=== PATIENT | male | born 1945 | race African-American/Black ===

== ENCOUNTER 2018-11-17 13:30 | Inpatient (IN) ==
[2018-11-17] MEDS ORDERED: SODIUM CHLORIDE 0.9% 1,000 ML IV STA (13:56)
[2018-11-17 14:50] LABS: Basophils % 0.5 % (0.0-0.8); Eosinophils # 0.1 10*3/uL (0.0-0.87); Eosinophils % 0.8 % (0.00-10.9); Hemoglobin 13.5 GM/DL (14.0-18.0); Immature Granulocytes % 0.3 %; Immature Granulocytes Absolute 0.02 #; Lymphocytes # 1.1 10*3/uL (1.4-4.0); Lymphocytes % 16.8 % (21.2-54.2); Mean Corpuscular HGB Conc 32.9 GM/DL (32-36); Mean Corpuscular Volume 87.6 FL (87-102); Mean Platelet Volume 10.7 FL (9.6-12.0); Neutrophils % 70.6 % (38.7-73.9); Platelet Count 130 T/CUMM (130-400); Red Blood Count 4.68 MC/CUMM (3.8-5.5); Red Cell Distribution Width 12.3 % (9.3-17.3); White Blood Count 6.4 T/CUMM (4-12)
[2018-11-17 15:23] LABS: Albumin 3.4 G/DL (3.4-5.0); Bilirubin,Total 1.6 MG/DL (0.2-1.0); Calcium 8.9 MG/DL (8.5-10.1); Osmolality,Calculated 277.8 MOS/KG (273-304); Total Protein 6.3 G/DL (6.4-8.3)
[2018-11-17] MEDS ORDERED: ONDANSETRON 4 MG/2 ML VIAL IV PRN (16:35)
[2018-11-17] MEDS ORDERED: SODIUM CHLORIDE 0.9% 1,000 ML IV SCH (17:00)
[2018-11-17 17:57] VITALS: BP 106/67
[2018-11-17] MEDS ORDERED: DONEPEZIL 10 MG TABLET PO SCH (21:00)
[2018-11-18] MEDS ORDERED: POTASSIUM CHLORIDE 8 MEQ CAPSULE PO SCH (09:00)
[2018-11-18] MEDS ORDERED: PANTOPRAZOLE 40 MG TABLET PO SCH (09:00)
== END 2018-11-17 19:17 | disposition left against medical advice (07) | DRG 684 ==
LOC: EDUNIT# → EDBD → N.ED 13:30 → N.EDINP 16:30 → N.TELEN 17:39
PROVIDERS: ADMIT Internal Medicine; ATTEND Internal Medicine

== ENCOUNTER 2018-11-18 07:27 | Inpatient (IN) ==
[2018-11-18] MEDS ORDERED: ONDANSETRON 4 MG/2 ML VIAL IV PRN (10:34)
[2018-11-18] MEDS ORDERED: ACETAMINOPHEN 325 MG TABLET PO PRN (10:34)
[2018-11-18 11:56] LABS: Basophils % 0.2 % (0.0-0.8); Hematocrit 40.8 VOL% (42.0-52.0); Hemoglobin 13.6 GM/DL (14.0-18.0); Immature Granulocytes % 0.6 %; Immature Granulocytes Absolute 0.07 #; Lymphocytes # 1.1 10*3/uL (1.4-4.0); Lymphocytes % 9.5 % (21.2-54.2); Mean Corpuscular HGB Conc 33.3 GM/DL (32-36); Mean Corpuscular Volume 87.9 FL (87-102); Mean Platelet Volume 10.7 FL (9.6-12.0); Monocytes % 9.7 % (1.7-12.7); Platelet Count 145 T/CUMM (130-400); Red Blood Count 4.64 MC/CUMM (3.8-5.5); Red Cell Distribution Width 12.7 % (9.3-17.3); White Blood Count 11.8 T/CUMM (4-12)
[2018-11-18 12:38] LABS: Albumin 3.4 G/DL (3.4-5.0); Bilirubin,Total 1.7 MG/DL (0.2-1.0); Calcium 8.9 MG/DL (8.5-10.1); Osmolality,Calculated 281.7 MOS/KG (273-304); Risk Ratio 5.13; Thyroid Stimulating Hormone 0.843 uIU/ml (0.358-3.74); Total Protein 6.7 G/DL (6.4-8.3); VLDL CHOLESTEROL 16.6 MG/DL
[2018-11-18 12:44] LABS: CKMB % 0.5 %; Troponin I 0.225 NG/ML (0.00-0.045)
[2018-11-18] MEDS: SODIUM CHLORIDE 0.9% 1,000 ML IV SCH (12:54)
[2018-11-18 12:59] LABS: Apearance,Urine CLOUDY (Clear); Bilirubin,Urine Negative (Negative); Blood, Urine Large mg/dL (Negative); Glucose,Urine (UA) Negative (Negative); Hyaline Casts,Urine 34 /LPF (0-3); Ketones,Urine Negative (Negative); Mucus,Urine Occasional /LPF (Occasional); Nitrite,Urine Negative (Negative); Protein,Urine 100 MG/DL; RBC,Urine 1 /HPF (0-4); Squamous Epithelial Cell,Urine Occasional /HPF (0-10); Urine Color Amber (Yellow); Urine Specific Gravity 1.017 (1.001-1.035); WBC,Urine 9 /HPF (0-6)
[2018-11-18] MEDS ORDERED: MAGNESIUM SULF RIDER 4 GM in PREMIX 1 EACH IV PRN (14:42)
[2018-11-18 14:46] LABS: CKMB % 0.5 %
[2018-11-18 14:47] LABS: Troponin I 0.224 NG/ML (0.00-0.045)
[2018-11-18] MEDS: MAGNESIUM SULF RIDER 2 GM in PREMIX 1 EACH IV PRN (15:06)
[2018-11-18] MEDS ORDERED: THIAMINE INJ 100 MG, FOLIC ACID INJ 1 MG, MAGNESIUM SULF INJ 2 GM, MULTIVITAMIN INJ 10 ... IV ONE (18:02)
[2018-11-18] MEDS ORDERED: HALOPERIDOL 5 MG/ML AMP IV ONE (18:02)
[2018-11-18 19:08] LABS: CKMB % 0.5 %
[2018-11-18 19:09] LABS: Troponin I 0.234 NG/ML (0.00-0.045)
[2018-11-18] MEDS: ZIPRASIDONE 20 MG/1 ML VIAL IM PRN (20:00)
[2018-11-18] MEDS: DONEPEZIL 10 MG TABLET PO SCH (23:03)
[2018-11-19] MEDS: SODIUM CHLORIDE 0.9% 1,000 ML IV SCH ×2 (01:37→18:11)
[2018-11-19 05:24] LABS: Basophils % 0.2 % (0.0-0.8); Eosinophils # 0.1 10*3/uL (0.0-0.87); Eosinophils % 0.5 % (0.00-10.9); Hematocrit 38.7 VOL% (42.0-52.0); Hemoglobin 13.6 GM/DL (14.0-18.0); Immature Granulocytes % 0.3 %; Immature Granulocytes Absolute 0.03 #; Lymphocytes # 2.2 10*3/uL (1.4-4.0); Lymphocytes % 21.6 % (21.2-54.2); Mean Corpuscular HGB Conc 35.1 GM/DL (32-36); Mean Corpuscular Volume 85.8 FL (87-102); Mean Platelet Volume 11.2 FL (9.6-12.0); Monocytes % 9.8 % (1.7-12.7); Neutrophils % 67.6 % (38.7-73.9); Platelet Count 135 T/CUMM (130-400); Red Blood Count 4.51 MC/CUMM (3.8-5.5); Red Cell Distribution Width 12.7 % (9.3-17.3)
[2018-11-19 05:33] LABS: Osmolality,Calculated 283.7 MOS/KG (273-304)
[2018-11-19] MEDS ORDERED: ceFAZolin 1,000 MG in SYRINGE 1 EACH IV ONE (06:00)
[2018-11-19] MEDS ORDERED: ceFAZolin 1,000 MG VIAL IRRIG ONE (06:00)
[2018-11-19] MEDS: hydrALAZINE 20 MG/1 ML VIAL IV PRN (08:26)
[2018-11-19] MEDS ORDERED: DIAZEPAM 5 MG TABLET PO ONE (09:00)
[2018-11-19] MEDS ORDERED: ENOXAPARIN 40 MG/0.4 ML SYRINGE SUBCUT SCH (09:00)
[2018-11-19] MEDS ORDERED: diphenhydrAMINE CAP 25 MG CAPSULE PO ONE (09:00)
[2018-11-19] MEDS ORDERED: TISSUE ADHESIVE 1 EACH APPLICATOR TOP ONE ×2 (09:27→12:45)
[2018-11-19] MEDS ORDERED: LIDOCAINE 1% 20 ML VIAL ONE (09:27)
[2018-11-19] MEDS ORDERED: HEPARIN/NACL 0.9% 2 UNITS/ML 500 ML IV ONE (09:27)
[2018-11-19] MEDS ORDERED: ceFAZolin 1,000 MG VIAL ONE (09:28)
[2018-11-19 10:39] LABS: Folate > 24.0 NG/ML (5.4-24.0); Vitamin B12 434 PG/ML (211-911)
[2018-11-19] MEDS ORDERED: SEVOFLURANE 1 UNIT/15 MINUTE INH ONE (13:57)
[2018-11-19] MEDS ORDERED: ONDANSETRON 4 MG/2 ML VIAL ONE (13:58)
[2018-11-19] MEDS ORDERED: ETOMIDATE 40 MG/20 ML VIAL IV ONE (13:58)
[2018-11-19] MEDS ORDERED: DEXAMETHASONE 4 MG/1 ML VIAL ONE (13:58)
[2018-11-19] MEDS ORDERED: PHENYLEPHRINE 1 MG/10 ML SYRINGE IV ONE (13:59)
[2018-11-19] MEDS ORDERED: ePHEDrine 50 MG/ML AMP ONE (13:59)
[2018-11-19] MEDS ORDERED: SODIUM CHLORIDE 0.9% 250 ML IV ONE (13:59)
[2018-11-19] MEDS ORDERED: PHENYLEPHRINE 10 MG/1 ML VIAL IV ONE (13:59)
[2018-11-19] MEDS ORDERED: SODIUM CHLORIDE 0.9% 1,000 ML IV ONE (13:59)
[2018-11-19] MEDS ORDERED: PROPOFOL 200 MG/20 ML VIAL IV ONE (13:59)
[2018-11-19] MEDS: ZIPRASIDONE 20 MG/1 ML VIAL IM PRN ×2 (14:00→21:51)
[2018-11-19] MEDS: PANTOPRAZOLE 40 MG TABLET PO SCH (14:02)
[2018-11-19] MEDS: DONEPEZIL 10 MG TABLET PO SCH (21:01)
[2018-11-20 05:29] LABS: Basophils % 0.2 % (0.0-0.8); Hematocrit 38.3 VOL% (42.0-52.0); Hemoglobin 12.4 GM/DL (14.0-18.0); Immature Granulocytes % 0.5 %; Immature Granulocytes Absolute 0.06 #; Lymphocytes % 8.1 % (21.2-54.2); Mean Corpuscular HGB Conc 32.4 GM/DL (32-36); Mean Platelet Volume 11.2 FL (9.6-12.0); Monocytes % 9.3 % (1.7-12.7); Neutrophils % 81.9 % (38.7-73.9); Platelet Count 117 T/CUMM (130-400); Red Blood Count 4.35 MC/CUMM (3.8-5.5); White Blood Count 11.7 T/CUMM (4-12)
[2018-11-20 06:05] LABS: Calcium 8.7 MG/DL (8.5-10.1); Osmolality,Calculated 285.4 MOS/KG (273-304)
[2018-11-20] MEDS: MAGNESIUM SULF RIDER 2 GM in PREMIX 1 EACH IV PRN (06:20)
[2018-11-20] MEDS: SODIUM CHLORIDE 0.9% 1,000 ML IV SCH ×2 (06:39→16:26)
[2018-11-20] MEDS: PANTOPRAZOLE 40 MG TABLET PO SCH (08:07)
[2018-11-20] MEDS: ZIPRASIDONE 20 MG/1 ML VIAL IM PRN (18:30)
[2018-11-20] MEDS: DONEPEZIL 10 MG TABLET PO SCH (21:22)
[2018-11-21] MEDS: ZIPRASIDONE 20 MG/1 ML VIAL IM PRN (01:50)
[2018-11-21] MEDS: SODIUM CHLORIDE 0.9% 1,000 ML IV SCH (02:42)
[2018-11-21] MEDS: PANTOPRAZOLE 40 MG TABLET PO SCH (08:54)
[2018-11-21] MEDS ORDERED: LIDOCAINE 2% TOP JELLY 20 ML VIAL INTRAURETH ONE (13:15)
[2018-11-21] MEDS ORDERED: TAMSULOSIN 0.4 MG CAPSULE PO SCH (21:00)
[2018-11-21] MEDS: DONEPEZIL 10 MG TABLET PO SCH (21:11)
[2018-11-22] MEDS: PANTOPRAZOLE 40 MG TABLET PO SCH (08:20)
[2018-11-22] MEDS: SODIUM CHLORIDE 0.9% 1,000 ML IV SCH ×2 (08:20→08:21)
[2018-11-22] MEDS: TAMSULOSIN 0.4 MG CAPSULE PO SCH (21:04)
[2018-11-22] MEDS: DONEPEZIL 10 MG TABLET PO SCH (21:04)
[2018-11-23 05:04] LABS: Basophils % 0.3 % (0.0-0.8); Eosinophils # 0.2 10*3/uL (0.0-0.87); Eosinophils % 1.9 % (0.00-10.9); Hematocrit 34.5 VOL% (42.0-52.0); Hemoglobin 11.4 GM/DL (14.0-18.0); Immature Granulocytes % 0.4 %; Immature Granulocytes Absolute 0.03 #; Lymphocytes # 1.7 10*3/uL (1.4-4.0); Lymphocytes % 21.3 % (21.2-54.2); Mean Corpuscular Volume 88.2 FL (87-102); Mean Platelet Volume 10.9 FL (9.6-12.0); Monocytes % 11.2 % (1.7-12.7); Neutrophils % 64.9 % (38.7-73.9); Platelet Count 94 T/CUMM (130-400); Red Blood Count 3.91 MC/CUMM (3.8-5.5); Red Cell Distribution Width 13.2 % (9.3-17.3); White Blood Count 7.9 T/CUMM (4-12)
[2018-11-23] MEDS: hydrALAZINE 20 MG/1 ML VIAL IV PRN (05:09)
[2018-11-23 05:27] LABS: Calcium 8.1 MG/DL (8.5-10.1); Osmolality,Calculated 288.3 MOS/KG (273-304)
[2018-11-23 05:41] LABS: Anisocytosis 1+; Ovalocytes 1+; Platelet Estimate Decreased
[2018-11-23] MEDS: SODIUM CHLORIDE 0.9% 1,000 ML IV SCH (08:44)
[2018-11-23] MEDS: TAMSULOSIN 0.4 MG CAPSULE PO SCH ×2 (08:45→21:11)
[2018-11-23] MEDS: PANTOPRAZOLE 40 MG TABLET PO SCH (08:45)
[2018-11-23] MEDS ORDERED: LIDOCAINE 2% TOP JELLY 20 ML VIAL INTRAURETH ONE (14:57)
[2018-11-23] MEDS: DONEPEZIL 10 MG TABLET PO SCH (21:10)
[2018-11-24] MEDS: SODIUM CHLORIDE 0.9% 1,000 ML IV SCH ×2 (00:29→09:24)
[2018-11-24] MEDS: ZIPRASIDONE 20 MG/1 ML VIAL IM PRN ×3 (00:57→21:51)
[2018-11-24 04:44] LABS: Basophils % 0.4 % (0.0-0.8); Eosinophils # 0.1 10*3/uL (0.0-0.87); Eosinophils % 1.7 % (0.00-10.9); Hematocrit 36.8 VOL% (42.0-52.0); Hemoglobin 11.9 GM/DL (14.0-18.0); Immature Granulocytes % 0.4 %; Immature Granulocytes Absolute 0.03 #; Lymphocytes # 1.6 10*3/uL (1.4-4.0); Lymphocytes % 21.9 % (21.2-54.2); Mean Corpuscular HGB Conc 32.3 GM/DL (32-36); Mean Corpuscular Volume 88.9 FL (87-102); Mean Platelet Volume 10.9 FL (9.6-12.0); Monocytes % 13.9 % (1.7-12.7); Neutrophils % 61.7 % (38.7-73.9); Platelet Count 103 T/CUMM (130-400); Red Blood Count 4.14 MC/CUMM (3.8-5.5); Red Cell Distribution Width 12.8 % (9.3-17.3); White Blood Count 7.5 T/CUMM (4-12)
[2018-11-24 05:17] LABS: Calcium 8.2 MG/DL (8.5-10.1); Osmolality,Calculated 283.4 MOS/KG (273-304)
[2018-11-24] MEDS ORDERED: MAGNESIUM SULF RIDER 4 GM in PREMIX 1 EACH IV ONE (07:54)
[2018-11-24] MEDS: TAMSULOSIN 0.4 MG CAPSULE PO SCH ×2 (09:19→21:51)
[2018-11-24] MEDS: PANTOPRAZOLE 40 MG TABLET PO SCH (09:19)
[2018-11-24] MEDS: FINASTERIDE 5 MG TABLET PO SCH (09:19)
[2018-11-24] MEDS: amLODIPine 10 MG TABLET PO SCH (09:27)
[2018-11-24] MEDS: MAGNESIUM CHLORIDE 64 MG TABLET PO SCH ×2 (09:28→21:51)
[2018-11-24] MEDS: DONEPEZIL 10 MG TABLET PO SCH (21:51)
[2018-11-25] MEDS: FINASTERIDE 5 MG TABLET PO SCH (08:43)
[2018-11-25] MEDS: TAMSULOSIN 0.4 MG CAPSULE PO SCH (08:43)
[2018-11-25 08:44] VITALS: BP 142/75
[2018-11-25] MEDS: MAGNESIUM CHLORIDE 64 MG TABLET PO SCH (08:44)
[2018-11-25] MEDS: PANTOPRAZOLE 40 MG TABLET PO SCH (08:44)
[2018-11-25] MEDS: amLODIPine 10 MG TABLET PO SCH (08:44)
[2018-11-25] MEDS: ZIPRASIDONE 20 MG/1 ML VIAL IM PRN (12:11)
== END 2018-11-25 12:45 | disposition swing bed (61) | DRG 243 ==
LOC: N.EDINP 07:27 → N.ED 07:27 → N.TELEN 10:35 → SUATTDRO 11-19 08:43
PROVIDERS: ADMIT Internal Medicine; ATTEND Family Medicine